=== PATIENT | female | born 1980 | race African-American/Black ===

== ENCOUNTER 2021-06-10 16:01 | Emergency (ER) | payer OTHER ==
[2021-06-10 16:49] LABS: BASOPHIL 0.1 % (0-2); EOSINOPHIL 0 % (0-5); HCT 35.8 % (37.0-47.0); HGB 10.7 g/dl (12.5-16.0); LYMPHOCYTE 12.4 % (15-48); MCH 21.8 pg (25.0-31.0); MCHC 29.9 g/dL (32.0-36.0); MCV 72.9 fL (78.0-100.0); MPV 9.8 fL (6.0-9.5); NEUTROPHIL 79.1 % (41-80); NRBC 0; PLT 374 K/uL (150-400); RBC 4.91 M/uL (4.20-5.40); RDW 17.3 % (11.5-14.0)
[2021-06-10 16:52] LABS: INR 1.07 (0.9-1.2); PROTHROMBIN TIME 13.3 SECONDS (11.8-13.4); PTT 25.6 SECONDS (24.4-34.7)
[2021-06-10 17:03] LABS: ALBUMIN 3.2 g/dL (3.4-5.0); BILIRUBIN - TOTAL 0.2 mg/dL (0.2-1.0); BUN/CREAT RATIO (CALC) 21.7 RATIO; CREATININE 0.69 mg/dL (0.51-0.95); GLOBULIN (CALCULATION) 4.6 g/dL; TOTAL PROTEIN 7.8 g/dL (6.4-8.2)
[2021-06-10 17:28] LABS: AMPHETAMINES NEGATIVE (NEGATIVE); BARBITURATES NEGATIVE (NEGATIVE); ECSTASY (MDMA) NEGATIVE (NEGATIVE); MARIJUANA (THC) NEGATIVE (NEGATIVE); METHADONE NEGATIVE (NEGATIVE); OPIATES NEGATIVE (NEGATIVE); OXYCODONE POSITIVE (NEGATIVE)
== END 2021-06-10 17:50 | disposition other institution (70) ==
LOC: FER 16:01
PROVIDERS: Emergency Medicine
DX: I63.9 Cerebral infarction, unspecified (principal); G81.94 Hemiplegia, unspecified affecting left nondominant side; H91.90 Unspecified hearing loss, unspecified ear; I10 Essential (primary) hypertension; Z20.822 Contact with and (suspected) exposure to COVID-19; Z88.0 Allergy status to penicillin
CPT/HCPCS: 36415; 70450; 71045; 80053; 80305; 84484; 85025; 85610; 85730; 93005; J7030; U0002

== ENCOUNTER → 2021-10-11 | Day surgery (SDC) | payer OTHER ==
[~2021-10-11] VITALS: Ht 165.1 cm; Wt 117.9 kg
[~2021-10-11] MED LIST: AMITRIPTYLINE 225 MG PO; BACLOFEN 10MG T10 MG PO; BAYER CHEWABLE81 MG PO; CLARITIN10 MG PO; LIPITOR40 MG PO; NEURONTIN300 MG PO; NORVASC5 MG PO; PERCOCET 10-321 EACH PO; PLAVIX75 MG PO; PROTONIX 40MG T40 MG PO; SKELAXIN800 MG PO; VITAMIN D325 MC4 PO
[2021-10-11 12:33] LABS: HCG (URINE) SCREEN NEGATIVE (NEGATIVE)
[2021-10-11 13:31] LABS: BASOPHIL 1.1 % (0-2); EOSINOPHIL 1.9 % (0-5); HCT 34.7 % (37.0-47.0); HGB 10.5 g/dl (12.5-16.0); LYMPHOCYTE 30.8 % (15-48); MCH 22.2 pg (25.0-31.0); MCHC 30.3 g/dL (32.0-36.0); MCV 73.5 fL (78.0-100.0); MONOCYTE 12.6 % (0-12); MPV 9.2 fL (6.0-9.5); NEUTROPHIL 53.3 % (41-80); NRBC 0; PLT 292 K/uL (150-400); RBC 4.72 M/uL (4.20-5.40); RDW 17.7 % (11.5-14.0); WBC 3.7 K/uL (4.0-10.5)
[2021-10-11 14:24] LABS: BUN/CREAT RATIO (CALC) 14.9 RATIO; CREATININE 0.74 mg/dL (0.51-0.95); POTASSIUM 3.6 mmol/L (3.5-5.1)
== END | disposition home or self-care (01) ==
LOC: FAS 11:55
PROVIDERS: Anesthesiology; Legal Medicine
DX: S83.242A Other tear of medial meniscus, current injury, left knee, initial encounter (principal); M22.42 Chondromalacia patellae, left knee; G89.29 Other chronic pain; K21.9 Gastro-esophageal reflux disease without esophagitis; Z86.73 Personal history of transient ischemic attack (TIA), and cerebral infarction without residual deficits; Z87.891 Personal history of nicotine dependence; Z98.84 Bariatric surgery status; Z88.0 Allergy status to penicillin; Z79.02 Long term (current) use of antithrombotics/antiplatelets; Z79.899 Other long term (current) drug therapy
CPT/HCPCS: 36415; 80048; 84703; 85025; J1100; J1885; J2274; J2405; J2704; J3010; J7120